=== PATIENT | female | born 1955 | race Caucasian/White ===

== ENCOUNTER 2017-01-16 04:54 | Emergency (ER) | payer OTHER ==
[~2017-01-16] VITALS: Ht 165.1 cm; Wt 67.6 kg
--- NOTE | ~2017-01-16 | CR72 ---
[facility] A Service of [facility] RADIOLOGY TEXT RESULTS PATIENT: CANDELARIA ALVAREZ LOCATION: [place] : 51 UNIT #: [id number] AGE: [address]: Martin Ross MD SEX: F ORDER DR: [id number] [facility] [address] [place], [place] [address] [id number] MR#: [id number] #: [id number] NAME: CANDELARIA ALVAREZ : 1955 SEX: F STUDY DATE/TIME: 01/16/2017 5:47 UNIT: [place] ROOM: STUDY DESCRIPTION: CR Chest Single View Portable Attending Physician: Martin Ross M.D. Ordering Physician: Joby Morin M.D. Primary Care Physician: No Primary Care Physician MEDICAL IMAGING REPORT This report is preliminary unless electronic signature is present EXAM AP portable chest DATE 01/16/2017 HISTORY 62-year-old female with generalized weakness, low blood sugar level, right lower extremity aching. Previous myocardial infarction and transient ischemic attack. COMPARISON AP portable chest 07/27/2015. FINDINGS There is mild airspace disease at the right base partially obscuring the diaphragmatic margin. Left lung remains clear. Stable cardiac enlargement without evidence of mili pulmonary edema. Left chest wall pacemaker leads appear stable. No visible pneumothorax. Benign calcified granulomatous changes in the right midlung. IMPRESSION 1. New mild right basilar airspace disease favored to represent atelectasis. 2. Stable cardiomegaly. No evidence of pulmonary edema. Dictated by... Veronika Card M.D. THIS IS AN ELECTRONICALLY VERIFIED REPORT Veronika Card M.D. at 01/17/2017 9:50 AM [facility]/df [facility] [place] [facility] TEXT RESULTS PATIENT: CANDELARIA ALVAREZ LOCATION: [facility] : [birth year] UNIT #: [id number] AGE: [address]: Martin Ross MD SEX: F ORDER DR: TD: 01/16/2017 10:59 JOB #: [id number] MEDICAL IMAGING REPORT Page 1 of 1 COPY
--- NOTE | ~2017-01-16 | EKG ---
PATIENT: CANDELARIA ALVAREZ UNIT #: [id number] Ventricular Rate: 82 BPM Atrial Rate: 82 BPM P-R Interval: 202 ms QRS Duration: 98 ms Q-T Interval: 410 ms QTC Calculation(Bezet): 479 ms P Belva: 71 degrees Calculated R Belva: 97 degrees Calculated T Belva: 72 degrees Diagnosis Line: Normal sinus rhythm Diagnosis Line: Rightward axis Diagnosis Line: Low voltage QRS Diagnosis Line: Cannot rule out Anteroseptal infarct , age Diagnosis Line: undetermined Diagnosis Line: Abnormal ECG Diagnosis Line: No previous ECGs available Diagnosis Line: Confirmed by TAVARES GARRIDO MD ([id number]) on Diagnosis Line: 01/16/2017 8:43:40 AM INTERPRETING MD: RADHIKA LINCOLN
[~2017-01-16 04:54] MED LIST: AMITRYPTYLINE PO; ASPIRIN81 M2 PO; BACTRIM DS TABL1 TA1 PO; CIPRO PO; CIPRO XR 500 M500 MG PO; COREG6.25 MG PO; IMDUR-ER60 M1 PO; LASIX20 MG PO; LEVEMIR SUBQ; LEXAPRO PO; LEXAPRO5 MG PO; LISINOPRIL10 MG PO; LISINOPRIL2.5 MG PO; MAGNESIUM400 M1 PO; MAGNESIUM400 MG PO; NOVOLOG; NOVOLOG100 U/ML SUBQ; PLAVIX PO; TOPROL XL 50 MG50 MG PO; TYLENOL PM PO
[2017-01-16 06:05] LABS: BASOPHIL# 0.1 X10e3 (0-0.3); BASOPHIL% 1.2 % (0-2.5); EOSINOPHIL% 0.2 % (0.0-7.0); HEMATOCRIT 29.5 % (35.0-45.0); HEMOGLOBIN 8.7 gm/dL (12.0-16.0); LYMPHOCYTE# 0.7 X10e3 (1.0-3.5); LYMPHOCYTE% 7.8 % (17.0-45.0); MEAN CELL VOLUME 67.2 FL (83-96); MEAN CORPUSCULAR HEMOGLOBIN 19.9 PG (28-34); MEAN CORPUSCULAR HGB CONC 29.6 g/dL (30-36); MEAN PLATELET VOLUME 8.2 FL (6.5-11.5); MONOCYTE# 0.8 X10e3 (0-1.0); MONOCYTE% 9.4 % (3.0-12.0); NEUTROPHIL# 6.8 X10e3 (1.5-7.1); NEUTROPHIL% 81.4 % (40-75); PLATELET COUNT 325 X10e3 (140-420); RED BLOOD COUNT 4.39 X10e (3.90-5.30); RED CELL DISTRIBUTION WIDTH 19.3 % (11.0-15.5); WHITE BLOOD COUNT 8.4 X10e3 (4.0-10.5)
[2017-01-16 06:07] LABS: DIFF IND NO
[2017-01-16 06:26] LABS: ALBUMIN SERUM 3.3 g/dL (3.5-5.0); BILIRUBIN, DIRECT 0.2 mg/dL (0.0-0.2); BILIRUBIN,INDIRECT 0.4 mg/dL (0.0-0.9); BILIRUBIN,TOTAL 0.6 mg/dL (0.2-2.0); BUN/CREATININE RATIO 27.5; CALCIUM SERUM 8.7 mg/dL (8.4-10.2); CREATININE SERUM 1.2 mg/dL (0.6-1.4); GLOM FILT RATE Estimated 47.7 mL/min (>60); POTASSIUM 4.3 mmol/L (3.5-5.1); PROTEIN TOTAL SERUM 7.3 g/dL (6.0-8.3)
[2017-01-16 06:38] LABS: CK TOTAL 45 IU/L (26-140)
[2017-01-16 07:49] LABS: URINE SOURCE CLEAN CATCH
[2017-01-16 08:01] LABS: URINE APPEARANCE CLOUDY; URINE BILIRUBIN NEG (NEG); URINE BLOOD NEG (NEG); URINE COLOR YELLOW; URINE GLUCOSE 100 MG/DL (NEG); URINE KETONE NEG (NEG); URINE LEUKOCYTE ESTERASE 1+ (NEG); URINE NITRATE NEG (NEG); URINE PROTEIN TRACE (NEG); URINE SPECIFIC GRAVITY 1.017 (1.003-1.035)
[2017-01-16 08:04] LABS: CULTURE INDICATED? YES; URBCS1 AUWI 0-2 /[HPF] (0-2); URINE BACTERIA AUWI 4+ (NEGATIVE); URINE SQUAMOUS EPITHELIAL CELL OCC /[HPF]
== END 2017-01-16 08:40 | disposition home or self-care (01) ==
LOC: CED 04:54
PROVIDERS: Emergency Medicine
DX: E10.649 Type 1 diabetes mellitus with hypoglycemia without coma (principal); N30.00 Acute cystitis without hematuria; T68.XXXA Hypothermia, initial encounter; E78.5 Hyperlipidemia, unspecified; K21.9 Gastro-esophageal reflux disease without esophagitis; I11.0 Hypertensive heart disease with heart failure; I50.9 Heart failure, unspecified; I25.2 Old myocardial infarction; Z88.5 Allergy status to narcotic agent; Z88.8 Allergy status to other drugs, medicaments and biological substances; Z79.899 Other long term (current) drug therapy; Z79.4 Long term (current) use of insulin
CPT/HCPCS: 36415; 71010; 80048; 80076; 81003; 82550; 82947; 84484; 85025; 87086; 93005; 99285